=== PATIENT | male | born 1955 | race Caucasian/White ===

== ENCOUNTER → 2023-12-28 07:42 | Outpatient (REF) | payer MEDICARE, OTHER, SELFPAY ==
[2023-12-28 09:05] LABS: Hematocrit 47.7 % (39.0-52.0); Hemoglobin 15.9 g/dL (13.0-18.0); Mean Corp Hgb Conc. 33.3 g/dL (33.0-37.0); Mean Corpuscular Hgb 29.7 pg (27.0-31.0); Mean Platelet Volume 11.1 fL (7.4-10.4); Platelet Count 166 10^3/uL (130-400); Red Blood Cell Count 5.36 10^6/uL (4.70-6.10); Red Cell Dist. Width 13.4 % (11.5-14.5); White Blood Cell Count 6.5 10^3/uL (4.8-10.8)
[2023-12-28 09:14] LABS: Blood Urea Nitrogen 18 mg/dl (9-20); Calcium 9.7 mg/dl (8.4-10.2); Carbon Dioxide 30 mmol/L (22-30); Chloride 99 mmol/L (98-107); Glucose 96 mg/dl (70-99); Sodium 137 mmol/L (135-145); eGFR > 60.00
== END ==
LOC: SDSPAT 07:42
PROVIDERS: ATTENDING PHYSICIAN Surgery; FAMILY PHYSICIAN Nurse Practitioner Family
DX: Z01.818 Encounter for other preprocedural examination (principal)
CPT/HCPCS: 36415; 80048; 85027; 93005

== ENCOUNTER 2024-01-03 06:22 | Day surgery (SDC) | payer MEDICARE, OTHER, SELFPAY ==
[2023-12-28 08:42] VITALS: BMI 37.1
[2024-01-03] VITALS (11 sets, daily range): BP systolic 136–159; BP diastolic 84–95; BMI 37.1
[2024-01-03] MEDS: NORMOSOL-R 1000 IV (08:27)
[2024-01-03] MEDS: TYLENOL 1000 MG PO (08:28)
--- NOTE | 2024-01-03 09:05 | W.SUR.PREOP ---
Pre-Operative Surgical Note
-
I have examined this patient prior to the performance of the scheduled procedure.
The patient's condition is unchanged from the time of the current History and
Physical and the patient is able to undergo the scheduled procedure.
--- NOTE | 2024-01-03 12:25 | W.IMMPOSTOP ---
Addendum entered and electronically signed by Sonny Bustos MD 01/05/24 07:42:
#[id number]
Original Note:
Surgical Immed Post Op Note
-
Primary Surgeon: Akash
Assisting Surgeon: Quinton MANUEL
Pre-op Diagnosis: Umbilical hernia
Left inguinal hernia
Post-op Diagnosis: Umbilical hernia -1.5 cm
Left inguinal hernia; indirect
Procedure Performed: Open umbilical herniorrhaphy with mesh; Ventralex ST 6.4 cm round
RAL MAGGIE repair left inguinal hernia with mesh; 3D max extra large mid weight
Anesthesia Type: GETA +0.25% Marcaine
Specimen / Cultures: None
Estimated Blood Loss: 12 mL
Complications: None immediate
Operative Findings: Open umbilical herniorrhaphy, fascial defect 1.5 cm. Preperitoneal underlay mesh repair Ventralex ST 6.4 cm round
Robotic assisted laparoscopic transabdominal preperitoneal repair for left inguinal hernia. Indirect inguinal hernia with large herniation of retroperitoneal fat which was reduced and excised. Cord structures still with rather bulky fatty
contents between vasculature and vas. Direct and femoral space normal. 3D max extra-large mid weight mesh repair. Peritoneal flap closed with 2-0 Monocryl STRATAFIX spiral x 2 as there is some disruption of the flap centrally but it all easily
came together without tension for complete closure.
Some weakness noted in the right indirect inguinal space but given the length of operative time for left inguinal herniorrhaphy and challenges with case elected not to pursue operative correction of his right inguinal hernia at this time.
Patient's updated postoperatively in the waiting area.
== END 2024-01-03 14:24 | disposition home or self-care (01) ==
LOC: SDS 06:22
PROVIDERS: ATTENDING PHYSICIAN Surgery
DX: K42.9 Umbilical hernia without obstruction or gangrene (principal); K40.90 Unilateral inguinal hernia, without obstruction or gangrene, not specified as recurrent
CPT/HCPCS: 49650; 49593; C1781

== ENCOUNTER → 2024-04-20 09:09 | Outpatient (REF) | payer MEDICARE, OTHER, SELFPAY ==
[2024-04-20 12:22] LABS: ALT (SGPT) 30 U/L (0-50); AST (SGOT) 26 U/L (17-59); Albumin 4.2 g/dl (3.5-5.0); Alkaline Phosphatase 77 U/L (38-126); Blood Urea Nitrogen 29 mg/dl (9-20); Calcium 9.4 mg/dl (8.4-10.2); Carbon Dioxide 26 mmol/L (22-30); Chloride 104 mmol/L (98-107); Glucose 90 mg/dl (70-99); HDL Cholesterol 49 mg/dl; LDL Cholesterol, Calculated 80 mg/dl; Potassium 4.3 mmol/L (3.5-5.1); Sodium 139 mmol/L (135-145); Total Bilirubin 1.4 mg/dl (0.2-1.3); Total Cholesterol 151 mg/dl (50-199); Triglyceride 110 mg/dl (10-149); Very Low Density Lipoprotein 22 mg/dl (0-30); eGFR > 60.00
[2024-04-20 15:05] LABS: Direct Bilirubin 0.5 mg/dl (0.0-0.4)
== END ==
LOC: HWLAB 09:09
PROVIDERS: ATTENDING PHYSICIAN Nurse Practitioner Family
DX: E78.5 Hyperlipidemia, unspecified (principal); H81.03 Meniere's disease, bilateral; R73.01 Impaired fasting glucose; E66.9 Obesity, unspecified; N40.1 Benign prostatic hyperplasia with lower urinary tract symptoms; D72.829 Elevated white blood cell count, unspecified; K42.9 Umbilical hernia without obstruction or gangrene; M25.561 Pain in right knee; M25.562 Pain in left knee; R03.0 Elevated blood-pressure reading, without diagnosis of hypertension
CPT/HCPCS: 36415; 80053; 80061; 82248

== ENCOUNTER → 2024-05-03 08:10 | Outpatient (REF) | payer MEDICARE, OTHER, SELFPAY ==
[2024-05-03 09:45] LABS: ALT (SGPT) 33 U/L (0-50); AST (SGOT) 27 U/L (17-59); Direct Bilirubin 0.3 mg/dl (0.0-0.4); Total Bilirubin 1.2 mg/dl (0.2-1.3)
== END ==
LOC: HWLAB 08:10
PROVIDERS: ATTENDING PHYSICIAN Nurse Practitioner Family
DX: E80.6 Other disorders of bilirubin metabolism (principal)
CPT/HCPCS: 36415; 82247; 82248; 84450; 84460

== ENCOUNTER 2024-10-02 06:30 | Day surgery (SDC) | payer MEDICARE, OTHER, SELFPAY ==
[2024-09-01 13:12] VITALS: BMI 36.8
[2024-09-01 14:10] LABS: Hematocrit 46.4 % (39.0-52.0); Hemoglobin 15.3 g/dL (13.0-18.0); Mean Corpuscular Hgb 28.7 pg (27.0-31.0); Mean Corpuscular Volume 86.9 fL (80.0-94.0); Mean Platelet Volume 11.1 fL (7.4-10.4); Platelet Count 167 10^3/uL (130-400); Red Blood Cell Count 5.34 10^6/uL (4.70-6.10); Red Cell Dist. Width 13.7 % (11.5-14.5); White Blood Cell Count 6.7 10^3/uL (4.8-10.8)
[2024-09-01 14:34] LABS: ALT (SGPT) 24 U/L (0-50); AST (SGOT) 23 U/L (17-59); Albumin 4.2 g/dl (3.5-5.0); Alkaline Phosphatase 64 U/L (38-126); Blood Urea Nitrogen 24 mg/dl (9-20); Calcium 9.9 mg/dl (8.4-10.2); Carbon Dioxide 31 mmol/L (22-30); Chloride 100 mmol/L (98-107); Estimated Creatinine Clearance 94 ml/min; Glucose 76 mg/dl (70-99); Potassium 4.5 mmol/L (3.5-5.1); Sodium 139 mmol/L (135-145); Total Bilirubin 1.3 mg/dl (0.2-1.3); Total Protein 6.8 g/dl (6.3-8.2); eGFR > 60.00
[2024-09-02 09:05] LABS: Glycohemoglobin (HgbA1c) 5.9 % (4.0-5.6)
--- NOTE | 2024-09-19 11:50 | VNURNOTE ---
[facility] liaison placed call to patient to explain [facility] joint protocol. He had not had his pre-op Ortho appt yet. Scheduled for 10/02. At time of call, pt unsure if same day surgery or PSR scheduled. Will call back to follow up after Ortho pre
op appt.
--- NOTE | 2024-09-21 13:37 | VNURNOTE ---
Patient had Ortho pre op appt 09/21.
Patient is scheduled for an elective R THR on 10/02/24- he is a same day patient with Dr Jay. Spoke with patient prior to surgery. Introduced role of [facility] Liaison. Patient reports that he lives with his in a MULTI story home.
There are 6 steps to enter, 1 step landing, and a flight of 6 steps to the second floor.
He currently functions independently. 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
PCP is Yannick Tapia
Discussed [facility] joint protocol and post surgical plans.
Reviewed that he will have VN services initially and will then start outpatient PT.
Patient selects [facility] for his home care needs and will go to '[facility]' for outpatient PT. Scheduled for 10/05
Patient is in agreement with plan and states that his will be home with him. Advised to bring RW with him day of surgery. Referral placed in [facility].
Plan: [facility] per [facility] joint protocol then outpt PT on 10/05
[2024-09-26 11:47] VITALS: BMI 36.8
[2024-10-02] VITALS (13 sets, daily range): BP systolic 132–172; BP diastolic 86–121; PULSE 62; O2SAT 97
[2024-10-02] MEDS: BACTROBAN NASAL 1 GRAM NASAL (08:53)
[2024-10-02] MEDS: CELEBREX 200 MG PO (08:53)
[2024-10-02] MEDS: TYLENOL 650 MG PO (08:53)
[2024-10-02] MEDS: FLOMAX 0.4 MG PO (14:37)
[2024-10-02] MEDS: ANCEF 5 IV (14:59)
== END 2024-10-02 16:04 | disposition home health service (06) ==
LOC: SDS 06:30
PROVIDERS: ATTENDING PHYSICIAN Specialist; FAMILY PHYSICIAN Nurse Practitioner Family
PROC: 0SRC0J9 Replacement of Right Knee Joint with Synthetic Substitute, Cemented, Open Approach (ICD-10-PCS; 2024-10-02)
DX: M17.11 Unilateral primary osteoarthritis, right knee (principal); E66.9 Obesity, unspecified; Z68.37 Body mass index [BMI] 37.0-37.9, adult; G47.33 Obstructive sleep apnea (adult) (pediatric); E78.00 Pure hypercholesterolemia, unspecified
CPT/HCPCS: 27447; 36415; 73560; 80053; 83036; 85027; 87070; 93005; 97162; C1713; C1776

== ENCOUNTER → 2025-01-22 06:14 | Outpatient (REF) | payer MEDICARE, OTHER, SELFPAY ==
[2025-01-22 09:45] LABS: % Basophils 0.6 % (0-2); % Eosinophils 2.1 % (0-6); % Immature Granulocytes 0.3 % (0-0.5); % Lymphocytes 24.7 % (20.5-51.1); % Monocytes 6.7 % (1.7-9.3); % Neutrophils 65.6 % (42.2-75.2); Absolute Eosinophils 0.1 10^3/uL (0-0.7); Absolute Lymphocytes 1.6 10^3/uL (1.2-3.4); Absolute Monocytes 0.4 10^3/uL (0.1-0.6); Absolute Neutrophils 4.1 10^3/uL (1.4-6.5); Hematocrit 46.3 % (39.0-52.0); Hemoglobin 15.1 g/dL (13.0-18.0); Mean Corp Hgb Conc. 32.6 g/dL (33.0-37.0); Mean Corpuscular Hgb 28.1 pg (27.0-31.0); Mean Corpuscular Volume 86.2 fL (80.0-94.0); Mean Platelet Volume 10.6 fL (7.4-10.4); Nucleated Red Blood Cells % 0 % (-); Platelet Count 181 10^3/uL (130-400); Red Blood Cell Count 5.37 10^6/uL (4.70-6.10); Red Cell Dist. Width 13.2 % (11.5-14.5); White Blood Cell Count 6.3 10^3/uL (4.8-10.8)
[2025-01-22 10:10] LABS: ALT (SGPT) 18 U/L (0-50); AST (SGOT) 19 U/L (17-59); Albumin 3.7 g/dl (3.5-5.0); Alkaline Phosphatase 80 U/L (38-126); Blood Urea Nitrogen 18 mg/dl (9-20); Calcium 9.5 mg/dl (8.4-10.2); Carbon Dioxide 30 mmol/L (22-30); Chloride 102 mmol/L (98-107); Glucose 105 mg/dl (70-99); HDL Cholesterol 50 mg/dl; LDL Cholesterol, Calculated 76 mg/dl; Potassium 4.3 mmol/L (3.5-5.1); Sodium 136 mmol/L (135-145); Total Bilirubin 0.9 mg/dl (0.2-1.3); Total Cholesterol 144 mg/dl (50-199); Total Protein 6.2 g/dl (6.3-8.2); Triglyceride 92 mg/dl (10-149); Very Low Density Lipoprotein 18 mg/dl (0-30); eGFR > 60.00
[2025-01-22 11:34] LABS: PSA, Total - Screen 4.49 ng/ml (0.0-4.0); TSH Reflex To Free T4 2.17 uIU/ml (0.47-4.68)
== END ==
LOC: HWLAB 06:14
PROVIDERS: ATTENDING PHYSICIAN Nurse Practitioner Family
DX: E78.5 Hyperlipidemia, unspecified (principal); E66.9 Obesity, unspecified; R73.01 Impaired fasting glucose; D72.89 Other specified disorders of white blood cells; Z12.5 Encounter for screening for malignant neoplasm of prostate
CPT/HCPCS: 36415; 80053; 80061; 83036; 84443; 85025; G0103

== ENCOUNTER → 2025-02-15 06:56 | Outpatient (REF) | payer MEDICARE, OTHER, SELFPAY ==
[2025-02-17 05:20] LABS: PSA Total 3.5 ng/mL (0.0-4.0)
== END ==
LOC: HWLAB 06:56
PROVIDERS: ATTENDING PHYSICIAN Specialist; FAMILY PHYSICIAN Nurse Practitioner Family
DX: R97.20 Elevated prostate specific antigen [PSA] (principal)
CPT/HCPCS: 36415; 84153; 84154

== ENCOUNTER → 2025-08-09 14:57 | Outpatient (REF) | payer MEDICARE, OTHER, SELFPAY | LOC: REG 14:57 | PROVIDERS: ATTENDING PHYSICIAN Nurse Practitioner Family | DX: R60.0 Localized edema (principal) | CPT/HCPCS: 36415; 83880 ==

== ENCOUNTER → 2025-08-16 10:12 | Outpatient (REF) | payer MEDICARE, OTHER, SELFPAY ==
--- NOTE | 2025-08-16 12:15 | CARDSERVDEF ---
Echocardiogram with Definity completed after protocol screening completed. Allergies verified.
Patent IV site: _Left forearm 22 G PC inserted by IV team____
IV site flushed with 0.9% NaCl pre and post administration.
Diluted bolus method utilized to enhance visualization of ventricular monahan.
Total volume given: __6__ mL
Patient tolerated all procedures well without complications.
Heplock D/C ed at 1210, site clear, no redness, no edema. Pressure held for few minutes as pt on anticoagulants, no bleeding, 2x2 applied and taped. Pt offers no complaints.
== END ==
LOC: RCS 10:12
PROVIDERS: ATTENDING PHYSICIAN Internal Medicine; FAMILY PHYSICIAN Nurse Practitioner Family
DX: Z01.810 Encounter for preprocedural cardiovascular examination (principal); R94.31 Abnormal electrocardiogram [ECG] [EKG]; E78.2 Mixed hyperlipidemia; E66.9 Obesity, unspecified
CPT/HCPCS: 93307; Q9957

== ENCOUNTER 2025-08-20 05:47 | Day surgery (SDC) | payer MEDICARE, OTHER, SELFPAY ==
--- NOTE | 2025-07-13 14:54 | CM ---
Cm reviewed medical records.
Demographics: confirmed
Living situation: lives independently with
Support Person Post Operatively: , Gabriela
History of
VN: [facility] from previous knee replacement, not currently on service
SNF: No
Outpatient: [facility] appointment made
Has patient purchased required equipment: yes
PCP: Marsha
Pharmacy: [facility]
Post Operative Discharge Plan: [facility], [facility], and then transition to outpatient
--- NOTE | 2025-08-06 14:40 | VNURNOTE ---
Patient is scheduled for an elective R TKA on 08/20 - he is a same day patient with Dr Jay. Spoke with patient prior to surgery. Introduced role of [facility] Liaison. Patient reports that he lives with his .
He has a rolling walker.
He had VN services after his prior knee and was same day surgery.
PCP is Yannick Tapia
Discussed [facility] joint protocol and post surgical plans.
Reviewed that he will have VN services initially and will then start outpatient PT.
Patient selects [facility] for his home care needs and will go to [facility] for outpatient PT. Scheduled for 08/23 .
Patient is in agreement with plan and states that his will be home with him. Advised to bring RW with him day of surgery. [facility] contact number provided. Referral placed in [facility].
Plan: [facility] per [facility] joint protocol on 08/20 then outpt PT on 08/23
[2025-08-08 14:11] VITALS: BMI 36.9
[2025-08-08 14:47] LABS: Hematocrit 47.4 % (39.0-52.0); Hemoglobin 15.8 g/dL (13.0-18.0); Mean Corp Hgb Conc. 33.3 g/dL (33.0-37.0); Mean Corpuscular Volume 88.3 fL (80.0-94.0); Platelet Count 182 10^3/uL (130-400); Red Cell Dist. Width 14.3 % (11.5-14.5)
[2025-08-08 14:59] VITALS: BMI 36.9
[2025-08-08 15:02] LABS: ALT (SGPT) 22 U/L (0-50); AST (SGOT) 19 U/L (17-59); Albumin 4.2 g/dl (3.5-5.0); Alkaline Phosphatase 71 U/L (38-126); Blood Urea Nitrogen 21 mg/dl (9-20); Calcium 9.7 mg/dl (8.4-10.2); Carbon Dioxide 30 mmol/L (22-30); Chloride 103 mmol/L (98-107); Estimated Creatinine Clearance 93 ml/min; Glucose 111 mg/dl (70-99); Potassium 4.2 mmol/L (3.5-5.1); Sodium 138 mmol/L (135-145); Total Protein 6.7 g/dl (6.3-8.2); eGFR > 60.00
[2025-08-09 11:28] LABS: Glycohemoglobin (HgbA1c) 5.9 % (4.0-5.6)
[2025-08-20] VITALS (11 sets, daily range): BP systolic 140–174; BP diastolic 82–99; BMI 36.9
[2025-08-20] MEDS: CELEBREX 200 MG PO (06:25)
[2025-08-20] MEDS: NORMOSOL-R/PLASMALYTE-A 1000 IV (06:25)
[2025-08-20] MEDS: TYLENOL 650 MG PO (06:25)
[2025-08-20] MEDS: FLOMAX 0.4 MG PO (09:45)
[2025-08-20] MEDS: ANCEF 5 IV (11:00)
[2025-08-20] MEDS: LASIX 10 MG IV (13:00)
[2025-08-20] MEDS: TYLENOL 1000 MG PO (14:08)
== END 2025-08-20 15:45 | disposition home health service (06) ==
LOC: SDS 05:47
PROVIDERS: ATTENDING PHYSICIAN Specialist; FAMILY PHYSICIAN Nurse Practitioner Family; OTHER PHYSICIAN Physician Assistant Medical
DX: M17.12 Unilateral primary osteoarthritis, left knee (principal); E66.9 Obesity, unspecified; Z68.36 Body mass index [BMI] 36.0-36.9, adult; N40.1 Benign prostatic hyperplasia with lower urinary tract symptoms; R33.8 Other retention of urine; G47.33 Obstructive sleep apnea (adult) (pediatric)
CPT/HCPCS: 27447; 36415; 73560; 80053; 83036; 85027; 87070; 93005; 97162; C1713; C1776